=== PATIENT | female | born 1990 | race Caucasian/White ===

== ENCOUNTER 2019-11-07 04:12 | Emergency (ER) | payer SELFPAY ==
--- NOTE | ~2019-11-07 | XR_ITS ---
XR chest 2V DATE: 11/07/2019 04:54 INDICATION: Cough, shortness of breath TECHNIQUE: PA and lateral views COMPARISON: None FINDINGS: Normal heart size. No hilar or mediastinal enlargement. No pulmonary infiltrate or consolid ation, pleural effusion or pulmonary vascular congestion or pneumothorax. IMPRESSION: No active cardiopulmonary disease Reviewed, dictated and finalized at location A.
--- NOTE | 2019-11-07 04:15 | ED.GENADULT ---
HPI - General Adult General Chief complaint: Shortness of Breath/Dyspnea Stated complaint: Flu Time Seen by Provider: 11/07/19 04:15 Source: patient and family Mode of arrival: ambulatory Limitations: no limitations History of Present Illness HPI narrative: Patient is a 29-year-old female who presents for evaluation of shortness of breath and cough. Patient was diagnosed with influenza B yesterday urgent care, has been feeling short of breath over the past 24 hours. Patient reports wheezing and productive cough. She reports fever and myalgias. She had one episode of emesis about an hour prior to arrival. Patient has not been able to tolerate much oral intake today. Patient reports intermittent diarrhea/loose stools without blood or mucus. No current abdominal pain. Patient last had Tylenol about an hour ago. Patient uses tobacco cigarettes, vaping and E cigarettes. She has no diagnosis of asthma. Related Data Allergies Allergy/AdvReac Type Severity Reaction Status Date / Time No Known Allergies Allergy Mild Verified 11/07/19 04:20 Review of Systems Review of Systems: Narrative: CONSTITUTIONAL: Reports fever and chills, denies sweating ENT: Reports congestion CARDIOVASCULAR: Denies chest pain, palpitations, or edema. RESPIRATORY: Reports cough and shortness of breath GASTROINTESTINAL: Denies abdominal pain, reports 1 episode of nausea and vomiting, and intermittent diarrhea GENITOURINARY: Denies dysuria or hematuria. SKIN: Denies rash or itching. MUSCULOSKELETAL: Denies back pain, joint pain, or myalgia. NEUROLOGIC: Reports mild headache [facility] Surgical History Surgical History (Updated 11/07/19 @ 04:24 by Jessy Freire MD) H/O wrist surgery Social History Social History (Updated 11/07/19 @ 04:24 by Jessy Freire MD) Smoking status: Current every day smoker Tobacco type: cigarettes and e-cigarettes Alcohol intake: never Substance use: never Living arrangements: with family Gender identity (if verbalized by the patient): Female Exam Narrative: Exam Narrative: GENERAL: Awake, alert, conversant HEAD: Normocephalic, atraumatic. EYES: PERRLA and EOMI. ENT: Nares clear, no rhinorrhea or epistaxis. Mucous membranes moist. NECK: Supple. CHEST: Mild tachypnea, mild respiratory distress. Expiratory wheezing bilaterally in the middle and lower lobes. Coarse breath sounds. No crackles. HEART: Regular rate and rhythm. No murmur heard. Normal peripheral pulses. ABDOMEN: Soft, nontender, nondistended, normal active bowel sounds. EXTREMITIES: Normal range of motion. No edema. SKIN: Warm, dry, no rash. NEURO:No focal deficits. Alert and oriented x3. Ambulatory with a narrow base, steady gait, no ataxia. Course Course Emergency Course: Patient presented to the emergency department for evaluation of cough, shortness of breath. At the time of initial assessment, ABCs are intact and vital signs are stable. EKG shows no acute ischemic changes. Patient is denying any chest pain, reports she is having coughing that makes her chest sore. Patient diagnosed with influenza yesterday. Laboratory results show no leukocytosis. No acute kidney injury or electrolyte abnormality. Patient was given a DuoNeb, steroids, felt much improved. Wheezing resolved at the time of reassessment. Patient was ambulatory and able to keep oxygen saturations above 96%. I evaluated the patient after ambulation challenge and she continued to do well. I explained to patient I do feel she has a wheezing component from the influenza due to her cigarette and vaping use. I advised her to quit this. I do not feel patient has pneumonia on chest x-ray, but due to anti-inflammatory properties of azithromycin and wheezing/emphysema type component to this, we will put patient on a azithromycin course as well as steroids and albuterol inhaler. Shared decision-making occurred, patient wanted to be discharged home. She was advised to return should her
[2019-11-07 04:16] VITALS: BP 108/81; PULSE 89; RESP 20; TEMP 36.9; O2SAT 95
--- NOTE | 2019-11-07 04:20 | ECG_ITS ---
Measurements Intervals [place] Rate: 80 P: 74 SC: 176 QRS: 47 QRSD: 82 T: 48 QT: 363 QTc: 421 Interpretive Statements SINUS RHYTHM RSR' IN V1 OR V2, CONSIDER RIGHT VENTRICULAR HYPERTROPHY OR RIGHT VCD BASELINE ARTIFACT- I, II, III, AVR, AVL, AVF BORDERLINE ECG Electronically Signed On 11-07-2019 7:06:41 CDT by Danish Alcantara D.O.
[2019-11-07] MEDS: IPRATROPIUM BR 0.02% INH SOLN 0.5 MG/2.5 ML VIAL INHALATION (04:34)
[2019-11-07] MEDS: ALBUTEROL SULFATE NEB 2.5 MG/0.5 ML INH 5 MG INHALATION (04:34)
[2019-11-07 04:35] VITALS: PULSE 89; RESP 20
[2019-11-07] MEDS: SODIUM CHLORIDE 0.9% IV 1,000 ML 999 ML IV CONT (04:35)
[2019-11-07] MEDS: ONDANSETRON INJ 4 MG/2 ML VIAL IV PUSH (04:35)
[2019-11-07 04:36] VITALS: O2SAT 100
[2019-11-07] MEDS: methylPREDNISolone SOD SUCC 125 MG VIAL IV PUSH (04:36)
[2019-11-07 04:39] LABS: Basophils Percent Auto 0.4 % (0.2-1.2); Eosinophils Percent Auto 0.5 % (0-4.4); Hematocrit 42.2 % (37.0-47.0); Hemoglobin 14.2 g/dL (12.0-15.0); Immature Granulocyte Absolute 0.03 K/mm3 (0.00-0.031); Immature Granulocyte Percent A 0.4 % (0-0.5); Lymphocytes Absolute Auto 1.29 K/mm3 (0.9-3.2); Lymphocytes Percent Auto 15.5 % (18.3-44.2); Mean Corpuscular HGB Conc 33.6 g/dl (32-36); Mean Corpuscular Hemoglobin 31.3 pg (26-34); Mean Platelet Volume 9.9 fl (7.4-10.4); Monocytes Absolute Auto 0.5 K/mm3 (0.1-0.6); Monocytes Percent Auto 6.4 % (2.6-8.5); Neutrophils Absolute Auto 6.4 K/mm3 (1.3-6.7); Neutrophils Percent Auto 76.8 % (45.5-73.1); Platelet Count Result 192 k/mm3 (150-375); Red Blood Count 4.54 M/mm3 (4.2-5.4); Red Cell Distribution Width 12.4 % (11.5-14.5); White Blood Count 8.3 K/mm3 (4.5-10.0)
[2019-11-07 04:43] VITALS: PULSE 85; RESP 20
[2019-11-07 04:52] LABS: Alanine Aminotransferase 26 U/L (4-35); Albumin Level 4.6 g/dL (3.5-5.1); Alkaline Phosphatase 75 U/L (38-126); Aspartate Amino Transferase 41 U/L (14-36); Bilirubin,Total 0.3 mg/dL (0.2-1.3); Blood Urea Nitrogen 11 mg/dL (7-17); Calcium 8.9 mg/dL (8.4-10.2); Carbon Dioxide 19 mmol/L (22-30); Chloride 104 mmol/L (98-107); Estimated CRCL calculation 95 ml/min; Estimated Glomerular Filt Rate > 60; Glucose 123 mg/dL (65-105); Potassium 3.6 mmol/L (3.4-5.0); Sodium 134 mmol/L (137-145)
== END 2019-11-07 05:50 | disposition home or self-care (01) ==
PROVIDERS: Emergency Provider Emergency Medicine
DX: J45.21 Mild intermittent asthma with (acute) exacerbation (principal); F17.290 Nicotine dependence, other tobacco product, uncomplicated; F17.210 Nicotine dependence, cigarettes, uncomplicated
CPT/HCPCS: 36415; 71046; 80053; 81025; 85025; 93005; 94640; 96361; 96374; 96375; 99284; J2405; J2930; J7030